=== PATIENT | female | born 1960 ===

== ENCOUNTER → 2021-06-21 08:09 | Outpatient (CLI) | payer OTHER, SELFPAY ==
--- NOTE | ~2021-06-21 | MR_ITS ---
EXAMINATION: MR knee LT wo con DATE: 06/21/2021 09:12 INDICATION: Pain and swelling of left knee. Fall in December 2020. TECHNIQUE: Magnetic resonance imaging (MRI) of the left knee was performed without intravenous contra st. Sequences included axial PD-weighted FS FSE, coronal PD-weighted FSE and PD-weighted FS FSE, sagi ttal PD-weighted FSE, and sagittal T2-weighted FS FSE. COMPARISON: None. FINDINGS: Medial compartment: Mild diffuse cartilage thinning. Mild osteophytosis. Degenerative change in the posterior horn. 4 mm perimeniscal cyst at the junction of the anterior horn and body. Lateral compartment: Mild diffuse cartilage thinning and osteophytosis. Intact meniscus. Patellofemoral compartment: Severe diffuse medial and lateral facet cartilage loss. Subchondral cyst formation. Retinacula and ex tensor mechanism intact. Ligaments and tendons: MCL, LCL, ACL, and PCL are intact. IT band, long head of biceps tendon, medial tendons, and popliteus muscle are intact. Fluid: Small volume joint fluid is present. Small fluid collection deep to the medial (pes anserine) tendons . Osseous/other: Focal marrow edema in the tibial spine. IMPRESSION: 1. Reactive marrow edema/marrow contusion involving the tibial spine. 2. Meniscal cyst at the junction of the anterior horn and body of the medial meniscus may herald the presence of an occult medial meniscal tear. 3. Pes anserine bursitis. Reviewed, dictated and finalized at location K. IMPRESSION: 1. Reactive marrow edema/marrow contusion involving the tibial spine. 2. Meniscal cyst at the junction of the anterior horn and body of the medial me niscus may herald the presence of an occult medial meniscal tear. 3. Pes anserine bursitis.
== END ==
DX: M79.662 Pain in left lower leg (principal); M79.89 Other specified soft tissue disorders; S80.12XA Contusion of left lower leg, initial encounter; M23.012 Cystic meniscus, anterior horn of medial meniscus, left knee; M71.562 Other bursitis, not elsewhere classified, left knee
CPT/HCPCS: 73721